=== PATIENT | female | born 1925 | race Caucasian/White ===

== ENCOUNTER → 2017-08-02 | Outpatient (CLI) | payer OTHER ==
[~2017-08-02] MED LIST: AMBIEN5 MG PO; AMLODIPINE BESY10 MG PO; ASPIRIN81 M2 PO; ATIVAN0.5 MG PO; ATORVASTATIN CA40 MG PO; CLONIDINE HCL0.1 MG PO; FLUZONE HI180 MCG/04 IM; INDAPAMIDE2.5 MG PO; LEVOTHYROXINE 0.1 MG PO; LOSARTAN POTAS100 MG PO; OCUVITE TABLET1 EAC1 PO; TOPROL XL25 MG PO; UNICOMPLEX M TA1 TA1 PO; VITAMIN D1000 UNI1 PO; ZOLPIDEM TARTRA10 MG PO
== END ==
LOC: ULTRA 09:26
DX: M79.605 Pain in left leg (principal); M79.89 Other specified soft tissue disorders